=== PATIENT | female | born 1950 | race Caucasian/White ===

== ENCOUNTER → 2016-12-02 | Outpatient (CLI) | payer OTHER ==
--- NOTE | 2016-12-02 17:26 | MA ---
Screening Digital Mammogram with Digital Breast Tomosynthesis Clinical Indications: Routine screening. Technique: Standard cephalocaudal projections are obtained. Digital breast tomosynthesis was perform ed in the MLO projection with reconstruction at 1.0 mm slice thickness and composite MLO views recons tructed. This examination is processed by the CAD computer aided detection system. Comparison: November 13, 2015; January 24, 2013; May 12, 2010. Breast density: C; The breasts are heterogeneously dense, which may obscure small masses. Findings: CAD was reviewed. There are no new masses, new clusters of microcalcifications, or significant axillary lymphadenopathy . Impression: Negative mammogram. BI-RADS 1. Recommendation: Routine screening mammogram is recommended in one year. Dense mammographic pattern limits the sensitivity of mammography in this patient. If there is a clini sacha palpable abnormality, recommend additional imaging with ultrasound if clinically indicated. [facility] will send a result letter to the patient. Negative mammography should not preclude additional workup of a clinically suspicious finding. The patient's information is entered into a reminder system with a target due date for her next mammo gram.
== END ==
LOC: FIMAGING 09:36
DX: Z12.31 Encounter for screening mammogram for malignant neoplasm of breast (principal)
CPT/HCPCS: G0202

== ENCOUNTER 2016-12-16 11:44 | Observation (INO) | payer OTHER ==
[~2016-12-16 11:44] MED LIST: LR 1,000 ML IV ONE; PHENAZOPYRIDINE HCL 200 MG TAB PO ONE; SCOPOLAMINE HYDROBROMIDE 1.5 MG PATCH TD ONE; ceFAZolin 2 GM/DEXTROSE 100 ML IV ONE
[2016-12-16] MEDS ORDERED: PHENAZOPYRIDINE HCL 200 MG TAB ONE (12:12)
[2016-12-16] MEDS ORDERED: SCOPOLAMINE HYDROBROMIDE 1.5 MG PATCH TD ONE (12:12)
[2016-12-16] MEDS ORDERED: CEFAZOLIN 2 GM/DEXTROSE/100 ML BAG IV ONE (12:13)
[2016-12-16] MEDS ORDERED: LIDOCAINE 1% 5 ML SDV ONE (12:20)
[2016-12-16] MEDS ORDERED: LR 1,000 ML IV ONE (12:44)
[2016-12-16] MEDS ORDERED: ONDANSETRON 4 MG/2 ML VIAL IVP PRN (12:44)
[2016-12-16] MEDS ORDERED: ACETAMINOPHEN 325 MG TAB PO PRN (12:44)
[2016-12-16] MEDS ORDERED: HYDROCODONE/APAP 5/325 TAB PO PRN (12:44)
--- NOTE | 2016-12-16 12:51 | POSTOPPROG ---
Post Op Note Date of Operation: 12/16/16 Surgeon: Bill Akins Rn Quality: Meryl Mendez Anesthesia: GET(General Endotracheal) Pre-op Diagnosis: vaginal prolapse, stress incontinence Post-op Diagnosis: Same Procedure: Robotic sacrocolpopexy, TOT sling, cysto Findings: Ureters function at end of case. Inf/Abcess present in the surg proc area at time of surgery?: No EBL: Minimal Complications: None Specimen(s): None
[2016-12-16] MEDS ORDERED: BUPIVACAINE/EPI 0.5% 30 ML SDV ONE (12:55)
[2016-12-16] MEDS ORDERED: SKIN ADHESIVE (DERMABOND) 1 EACH TP ONE (12:56)
[2016-12-16] MEDS ORDERED: LR 1,000 ML IV SCH (13:00)
[2016-12-16] MEDS ORDERED: MIDAZOLAM 2 MG/2 ML VIAL ONE (13:04)
[2016-12-16] MEDS ORDERED: PROPOFOL/EMULSION 500 MG/50 ML BOTTLE IV ONE (13:06)
[2016-12-16] MEDS ORDERED: fentaNYL 250 MCG/5 ML INJ ONE (13:06)
[2016-12-16] MEDS ORDERED: ROCURONIUM 100 MG/10 ML VIAL ONE (13:07)
[2016-12-16] MEDS ORDERED: LIDOCAINE 2% 5 ML SDV ONE (13:07)
[2016-12-16] MEDS ORDERED: DEXAMETHASONE 4 MG/ML VIAL ONE (15:04)
[2016-12-16] MEDS ORDERED: KETOROLAC 30 MG/1 ML SDV ONE (15:04)
[2016-12-16] MEDS ORDERED: ONDANSETRON 4 MG/2 ML VIAL ONE (15:04)
[2016-12-16] MEDS ORDERED: epHEDrine SULFATE 10 MG/ML SYR ONE (15:20)
[2016-12-16] MEDS ORDERED: fentaNYL 100 MCG/2 ML INJ ONE (16:12)
[2016-12-16] MEDS: SIMETHICONE 80 MG TAB CHEW PO SCH ×3 (18:00→22:50)
[2016-12-16] MEDS: KETOROLAC 15 MG/1 ML SDV IVP SCH ×2 (19:28→21:32)
--- NOTE | 2016-12-16 19:39 | GOP ---
[f rep st] OPERATIVE REPORT DATE OF OPERATION: 12/16/2016 SURGEON: Bill Akins MD WAD IMPREGNATOR: Meryl Mendez CFA. ANESTHESIA: General. PREOPERATIVE DIAGNOSIS: 1. Cystocele. 2. Rectocele. 3. Vaginal vault prolapse. 4. Stress urinary incontinence. POSTOPERATIVE DIAGNOSIS: 1. Cystocele. 2. Rectocele. 3. Vaginal vault prolapse. 4. Stress urinary incontinence. PROCEDURE PERFORMED: 1. Robotic-assisted laparoscopic sacral colpopexy with mesh. 2. Repair of cystocele and rectocele. 3. Transobturator sling. 4. Cystoscopy. FINDINGS: SPECIMENS: None. ESTIMATED BLOOD LOSS: Scant. DESCRIPTION OF PROCEDURE: Fatou was taken to the operating room where she was identified. General anesthesia was administered and found to be adequate. She was placed in the lithotomy position, and prepared and draped in normal sterile fashion. A Chinchilla catheter was placed in her bladder. A 1 cm incision was made through her prior surgical scar below the umbilicus. The Veress needle with the CO2 gas flowing was advanced into the peritoneal cavity. The abdomen was then insufflated with carbon dioxide gas. The 12 mm trocar followed by the laparoscope were then inserted. The upper abdomen was unremarkable. Two lateral ports were placed on the right, 1 on the left under direct visualization. The patient was then placed in Trendelenburg position and the da Annalee robot docked on the left side. The instruments were then brought into the abdominal cavity under direct visualization. The adhesions from her prior hysterectomy were taken down sharply. A stent was placed in the vagina. The bladder was gently dissected off of the anterior vaginal wall down to the level of the bladder neck. The rectum was adherent to the posterior vaginal wall from her prior surgery. It was carefully dissected off down to the level of the perineal body. Measurements were then obtained, and the mesh trimmed to size. The sacral promontory was identified and overlying peritoneum incised. The fat pad was gently dissected off of the anterior longitudinal ligament. The peritoneal incision was then extended along the right pericolic gutter medial to the right ureter and lateral to the sigmoid colon until it met the rectovaginal opening. The mesh was then brought into the abdominal cavity. Three sutures of 4-0 Palisades-Campos were used to attach the distal posterior mesh to the perineal body. Two additional rows of Palisades- Campos sutures were placed posteriorly to resolve the rectocele. The anterior arm of the mesh was draped over the anterior vagina and sutured down to the level of the bladder neck. Three rows of Palisades-Campos sutures were also placed. The lateral sutures were placed in the paravaginal tissues for support. The stent was then removed from the vagina. The sacral arm of the mesh was placed over the promontory, and the tension adjusted. I then scrubbed back into the case to examine the vagina. The tension was further adjusted to resolve the cystocele and rectocele without undue tension on the vagina. Two sutures of 2- 0 Palisades-Campos were used to attach the sacral arm of the mesh to the anterior longitudinal ligament at the level of the upper sacral 1 body below the intervertebral disc space. The excess mesh was then trimmed, and the pelvis was irrigated with sterile saline. The peritoneum was then closed over the entire mesh with 3-0 V-Loc 90 suture. The robot was then undocked. The fascia was closed with 0 Vicryl. The skin with 4-0 Monocryl and surgical adhesive. Attention was then turned to the sling portion of the procedure. A midurethral incision was made with a scalpel. Tunnels were created bilaterally out to the obturator internus muscles. Skin incisions were made over the obturator notches. The Halo trocar was placed through the left skin incision, redirected around the ischiopubic rami and out through the vaginal incision using a vaginal finger as a guide. The lateral sulci were examined, and no evidence of vaginal injury had occurred. The sling was then attached to the trocar and brought out along the same course. The exact same procedure was performed on the patient's right side. The sling was then adjusted to allow a small midurethral gap. The vaginal incision was closed with 2-0 Vicryl, skin with 4- 0 Monocryl. Cystoscopy was then performed. Both ureters had vigorous jets of urine. There was no evidence of bladder or urethral injury seen. No mesh or sutures were seen within the bladder or urethra. The Chinchilla catheter was replaced. Vaginal packing was placed. Anesthesia was reversed. The patient was taken to the PACU awake and in stable condition. COMPLICATIONS: None. DISPOSITION: Good, stable to PACU. /[id number]/MODL MTDD
[2016-12-16] MEDS: DOCUSATE SODIUM 100 MG CAP PO SCH (21:32)
[2016-12-17] MEDS: KETOROLAC 15 MG/1 ML SDV IVP SCH ×2 (03:40→10:47)
[2016-12-17] MEDS: DOCUSATE SODIUM 100 MG CAP PO SCH (08:07)
[2016-12-17] MEDS: SIMETHICONE 80 MG TAB CHEW PO SCH (08:07)
--- NOTE | 2016-12-17 09:12 | SOAPPROG ---
SOAP Progress Note Assessment/Plan: Assessment: Doing well, no issues. Plan: 12/17/16 09:28 Discharge home, instructions reviewed, has apptin 2 weeks. Subjective: No complaints, ambulating, voiding, tolerating a general diet. Pain controlled. Objective: Vital Signs Temp Pulse Resp BP Pulse Ox 36.6 C 74 17 108/57 L 94 12/17/16 01:55 12/17/16 01:55 12/17/16 01:55 12/17/16 01:55 12/17/16 01:55 12/16/16 12/17/16 12/18/16 05:59 05:59 05:59 Intake Total 1480 Output Total 1625 Balance -145 - Pending Discharge Pending Discharge Within 24 Hours: Yes Pending Discharge Date: 12/18/16 Pending Discharge Time: 11:00 Physical Exam - Physical Exam General Appearance: WD/WN, alert, no apparent distress Respiratory: lungs clear Cardiac/Chest: regular rate, rhythm Abdomen: normal bowel sounds, non-tender, soft (Incisions clean, dry, and intact.) ICD10 Worksheet Patient Problems: Problems Problem Status Diagnosed Cystocele Acute Genuine stress incontinence, female Acute Prolapse of vaginal vault after hysterectomy Acute Rectocele Acute - ICD10 Problem Qualifiers (1) Prolapse of vaginal vault after hysterectomy (2) Cystocele (3) Rectocele (4) Genuine stress incontinence, female
[2016-12-17] MEDS ORDERED: KETOROLAC 15 MG/1 ML SDV IVP ONE (11:00)
[2016-12-17 12:42] VITALS: BP 97/62; PULSE 61; RESP 16; TEMP 98.1
[2016-12-17 12:47] VITALS: O2SAT 94
--- NOTE | 2016-12-18 15:10 | GDS ---
[f rep st] DISCHARGE SUMMARY DISCHARGE DIAGNOSIS: 1. Vaginal vault prolapse. 2. Cystocele. 3. Rectocele. 4. Stress urinary incontinence. PROCEDURES: 1. Robotic-assisted laparoscopic sacrocolpopexy with mesh. 2. Repair of cystocele and rectocele. 3. Transobturator sling. 4. Cystoscopy. HISTORY: The patient is a 66-year-old woman with symptomatic vaginal prolapse and stress incontinenc e. HOSPITAL COURSE: She was taken to the operating room on 12/16/2016 where she underwent the above-men tioned procedures without complications. Her postoperative course was uneventful. The morning after surgery, she was ambulating and voiding a nd tolerating a general diet. She was discharged home on postoperative day #1 in good condition. MEDICATIONS: Included Needles and ibuprofen for pain. FOLLOWUP: She is to follow up in the office 2 weeks after discharge for an incision check. /[id number]/MODL
== END 2016-12-17 11:10 | disposition home or self-care (01) ==
LOC: F3E 11:44 → FOB 17:35
PROVIDERS: ADMIT Obstetrics & Gynecology; ATTEND Obstetrics & Gynecology
PROC: 0UQG4ZZ Repair Vagina, Percutaneous Endoscopic Approach (ICD-10-PCS; 2016-12-16)
PROC: 0UUG4JZ Supplement Vagina with Synthetic Substitute, Percutaneous Endoscopic Approach (ICD-10-PCS; principal; 2016-12-16 13:00)
PROC: 0TUC0JZ Supplement Bladder Neck with Synthetic Substitute, Open Approach (ICD-10-PCS; 2016-12-16 13:00)
PROC: 0DQP4ZZ Repair Rectum, Percutaneous Endoscopic Approach (ICD-10-PCS; 2016-12-16 13:00)
PROC: 8E0W8CZ Robotic Assisted Procedure of Trunk Region, Via Natural or Artificial Opening Endoscopic (ICD-10-PCS; 2016-12-16 13:00)
DX: N99.3 Prolapse of vaginal vault after hysterectomy (principal); N39.3 Stress incontinence (female) (male); N81.11 Cystocele, midline; N81.6 Rectocele
CPT/HCPCS: 57250; 57288; 57425; C1763; C1771; J0690; J1100; J1885; J2250; J2405; J2704; J3010